=== PATIENT | male | born 1955 | race Caucasian/White ===

== ENCOUNTER 2016-07-05 05:14 | Day surgery (SDC) | payer MEDICAID ==
[2016-07-04 12:29] LABS: APTT 32.2 SECONDS (22.8-39.4); INR 0.98 (0.85-1.17); PROTIME 12.9 SECONDS (11.6-15.0)
[2016-07-04 12:30] LABS: ANION GAP 14.7 mmol/L (8-16); CALCIUM 9.2 mg/dL (8.5-10.1); CARBON DIOXIDE 24.6 mmol/L (21.0-32.0); CREATININE - SERUM 1.1 mg/dL (0.6-1.3); POTASSIUM - SERUM 4.3 mmol/L (3.5-5.1)
[2016-07-04 12:57] LABS: BASOPHILS 0.1 % (0.0-2.0); EOSINOPHILS 1.7 % (0-7); HEMATOCRIT 47.1 % (42.0-54.0); HEMOGLOBIN 15.6 g/dL (13.5-17.5); IMMATURE GRANULOCYTES 0.3 % (0-5); LYMPHOCYTES 13.4 % (15-50); MCH 29.7 pg (26.0-34.0); MCHC 33.1 g/dL (31.0-37.0); MCV 89.5 fL (80.0-100.0); MONOCYTES 8.8 % (2-11); NEUTROPHILS 75.7 % (40-80); PLATELET COUNT 286 10x3/uL (130-400); RBC 5.26 10x6/uL (4.20-6.10); RDW 13.3 % (11.5-14.5)
[~2016-07-05] VITALS: Ht 177.8 cm; Wt 87.5 kg
[~2016-07-05 05:14] MED LIST: ALOE VERA JUICE OR; HYDROCODONE-ACET5 ML PO; LORATAB PO; MILK THISTLE140 MG PO; VALIUM5 MG PO; ZESTRIL20 MG PO; ZOFRAN4 MG PO
[2016-07-05 06:13] VITALS: BP 127/91; Ht 177.8 cm; Wt 87.5 kg
--- NOTE | 2016-07-05 08:13 | NUR ---
PRAVEEN GALVEZ TO ROOM
[2016-07-05] MEDS ORDERED: HYDROCODONE-APA1 TAB PO (08:52)
--- NOTE | 2016-07-05 10:10 | NUR ---
1000-MEDICATED WITH ONE 10MG NORCO FOR PAIN. ICE PACK APPLIED TO SITE.
--- NOTE | 2016-07-05 12:08 | NUR ---
1145-PT. LEFT, ESCORTED VIA WHEELCHAIR TO PERSONAL CAR, LEFT WITH AT SIDE.
--- NOTE | 2016-07-05 13:26 | OP ---
PATIENT NAME: LUCITA HONEYCUTT MEDICAL RECORD: [id number] :51 LOCATION:D.OPS ADMISSION DATE: SURGEON: TOMMY QUIROGA MD DATE OF OPERATION: 07/05/2016 PREOPERATIVE DIAGNOSES: 1. Left inguinal hernia. 2. Hypertension. POSTOPERATIVE DIAGNOSES: 1. Left inguinal hernia. 2. Hypertension. PROCEDURE: Left inguinal hernia repair with medium PHS mesh. SURGEON: Tommy Quiroga MD REPORT OF PROCEDURE: The patient's left groin was prepped and draped in sterile fashion. An oblique incision was made above the inguinal ligament. Electrocautery was used to dissect through the subcutaneous tissue to the external oblique fascia. This fascia was incised with a 15 blade and opened to the external ring using Metzenbaum scissors. The ilioinguinal nerve was found and high ligated. The spermatic cord was elevated and the Ramer was placed around it. The patient had a small indirect hernia defect. This was freed up from the spermatic cord and dunked back down into the peritoneal cavity. The preperitoneal space of Retzius was opened up in all directions and a medium PHS mesh was inserted. This was sutured down on all 4 sides using interrupted 0 Vicryls. The wound was then irrigated out with normal saline. The external oblique fascia was then closed with running 2-0 Vicryl, Yolanda's was closed with interrupted 3-0 Vicryls and the skin was closed with running subcutaneous 5-0 Monocryl. A 10 mL of 0.25% Marcaine with epinephrine was infused into the surrounding tissues and the wound was dressed appropriately. COMPLICATIONS: None. CONDITION: Stable. ANESTHESIA: General endotracheal and local. BLOOD LOSS: Minimal. TRANSINT:[id number] Voice Confirmation ID: [id number] DOCUMENT ID: [id number] TOMMY QUIROGA MD at 1326 CC: PANCHO DUENAS MD [id number] DICTATION DATE: 07/05/16 0858 PARCEL POST DELIVERY: 07/05/16 0922 [facility] 07/05/16 [id number] [place] [address]
== END 2016-07-05 11:45 | disposition home or self-care (01) ==
LOC: D.OPS 05:14 → D.PAN 07:30 → D.OPS 08:45
PROVIDERS: Anesthesiology; Surgery
DX: K40.90 Unilateral inguinal hernia, without obstruction or gangrene, not specified as recurrent (principal); I10 Essential (primary) hypertension

== ENCOUNTER → 2017-07-09 14:47 | Outpatient (CLI) | payer MEDICAID ==
[2016-07-05 06:13] VITALS: BMI 27.7
[~2017-07-09 14:47] MED LIST changes: +HYDROCODONE-APA1 TAB PO
== END | disposition home or self-care (01) ==
LOC: D.CT 14:47
DX: C83.31 Diffuse large B-cell lymphoma, lymph nodes of head, face, and neck (principal)

== ENCOUNTER 2017-08-16 16:34 | Emergency (ER) | payer MEDICAID ==
[2016-07-05 06:13] VITALS: BMI 27.7
[2017-08-16 16:57] LABS: BASOPHILS 0.2 % (0-2); EOSINOPHILS 2.2 % (0-7); HEMOGLOBIN 15.4 g/dL (13.5-17.5); IMMATURE GRANULOCYTES 0.2 % (0-5); LYMPHOCYTES 22.2 % (15-50); MCH 29.8 pg (26.0-34.0); MCHC 34.2 g/dL (31.0-37.0); MCV 87.2 fL (80.0-100.0); MEAN PLATELET VOLUME 8.7 fL (7.4-10.4); NEUTROPHILS 66.2 % (40-80); RBC 5.16 10x6/uL (4.20-6.10); RDW 12.2 % (11.5-14.5); WBC 5.4 10x3/uL (4.8-10.8)
[2017-08-16 16:58] LABS: PLATELET COUNT 227 10x3/uL (130-400)
[2017-08-16 17:33] LABS: ALBUMIN 3.7 g/dL (3.4-5.0); ALKALINE PHOSPHATASE 56 U/L (46-116); ALT (SGPT) 35 U/L (10-68); CALC OSMOLALITY 275 mosm/kg (275-300); CALCIUM 8.7 mg/dL (8.5-10.1); CARBON DIOXIDE 25.5 mmol/L (21.0-32.0); CHLORIDE - SERUM 101 mmol/L (98-107); CREATININE - SERUM 1.1 mg/dL (0.6-1.3); GLUCOSE 91 mg/dL (74-106); POTASSIUM - SERUM 4.2 mmol/L (3.5-5.1); PROTEIN - SERUM 7.4 g/dL (6.4-8.2); SODIUM 137 mmol/L (136-145); UREA NITROGEN 17 mg/dL (7-18); eGFR NON AFRICAN AMERICAN 71 mL/min (90-120)
[2017-08-16 17:46] LABS: CHOL - HDL RATIO 2.7 ratio (2.3-4.9); CHOLESTEROL, TOTAL 175 mg/dL (0-200); CKMB 1.4 U/L (0.0-3.6); CREATINE KINASE 69 UL (21-232); HDL CHOLESTEROL 66 mg/dL (32-96); LDL CHOLESTEROL 73 mg/dL (0-100); LDL-HDL RATIO 1.1 ratio (1.5-3.5); TRIGLYCERIDE 181 mg/dL (30-200); TROPONIN-I < 0.017 ng/mL (0.000-0.060)
== END 2017-08-16 19:11 | disposition home or self-care (01) ==
LOC: D.ER 16:34
PROVIDERS: Emergency Medicine
DX: R42 Dizziness and giddiness (principal); T50.905A Adverse effect of unspecified drugs, medicaments and biological substances, initial encounter; Y92.019 Unspecified place in single-family (private) house as the place of occurrence of the external cause

== ENCOUNTER 2019-02-15 19:27 | Observation (INO) | payer MEDICARE ==
[~2019-02-15] VITALS: Ht 177.8 cm; Wt 90.9 kg
[2019-02-15] MEDS ORDERED: PEPCID AC20 MG PO (19:32)
[2019-02-15 19:51] VITALS: BP 157/108
[2019-02-15 19:58] LABS: BASOPHILS 0.4 % (0-2); EOSINOPHILS 3.9 % (0-7); HEMATOCRIT 40.8 % (42.0-54.0); HEMOGLOBIN 14.4 g/dL (13.5-17.5); IMMATURE GRANULOCYTES 0.2 % (0-5); LYMPHOCYTES 19.1 % (15-50); MCH 30.2 pg (26.0-34.0); MCHC 35.3 g/dL (31.0-37.0); MCV 85.5 fL (80.0-100.0); MEAN PLATELET VOLUME 8.2 fL (7.4-10.4); MONOCYTES 11.3 % (2-11); NEUTROPHILS 65.1 % (40-80); PLATELET COUNT 209 10x3/uL (130-400); RBC 4.77 10x6/uL (4.20-6.10); RDW 13.1 % (11.5-14.5); WBC 4.7 10x3/uL (4.8-10.8)
[2019-02-15 20:07] LABS: APTT 30.2 SECONDS (22.8-39.4); INR 0.99 (0.85-1.17); PROTIME 12.6 SECONDS (11.6-15.0)
[2019-02-15 20:13] VITALS: BP 154/99
--- NOTE | 2019-02-15 20:13 | NUR ---
PT REPORTS PAIN PRIOR TO FIRST NITRO 08/17 BP :154/99 HR 83
[2019-02-15 20:16] LABS: ALBUMIN 3.9 g/dL (3.4-5.0); ALKALINE PHOSPHATASE 59 U/L (46-116); ALT (SGPT) 26 U/L (10-68); BILIRUBIN - TOTAL 0.48 mg/dL (0.2-1.3); CALC OSMOLALITY 261 mosm/kg (275-300); CALCIUM 8.4 mg/dL (8.5-10.1); CARBON DIOXIDE 27.3 mmol/L (21.0-32.0); CHLORIDE - SERUM 96 mmol/L (98-107); CREATININE - SERUM 1.1 mg/dL (0.6-1.3); GLUCOSE 88 mg/dL (74-106); POTASSIUM - SERUM 4.3 mmol/L (3.5-5.1); PROTEIN - SERUM 7.4 g/dL (6.4-8.2); SODIUM 132 mmol/L (136-145); UREA NITROGEN 8 mg/dL (7-18); eGFR NON AFRICAN AMERICAN 71 mL/min (90-120)
[2019-02-15 20:37] VITALS: BP 150/88
[2019-02-15 20:37] LABS: CKMB 2.6 U/L (0.0-3.6); CREATINE KINASE 111 UL (21-232); MAGNESIUM - SERUM 1.9 mg/dL (1.8-2.4)
--- NOTE | 2019-02-15 20:37 | NUR ---
PT REPORTS NO IMPROVEMENT IN PAIN WITH FIRST NITRO. PRIOR TO 2ND NITRO BP 150/88 HR 80
[2019-02-15 20:38] LABS: TROPONIN-I < 0.017 ng/mL (0.000-0.060)
[2019-02-15 21:12] VITALS: BP 120/80
--- NOTE | 2019-02-15 21:16 | NUR ---
UNABLE TO ACCEPT REPORT AT THIS TIME. NURSE WILL RETURN CALL
--- NOTE | 2019-02-15 21:25 | NUR ---
CALL RETURNED. ON HOLD AT THIS TIME.
--- NOTE | 2019-02-15 21:32 | NUR ---
STILL HOLDING FOR ER TO GIVE REPORT.
--- NOTE | 2019-02-15 21:35 | NUR ---
ER STAFF UNABLE TO PROVIDE REPORT. WILL WAIT FOR THEM TO CALL BACK TO UNIT.
--- NOTE | 2019-02-15 21:46 | NUR ---
REPORT RECIEVED FROM BRAIN IN ER. PT BEING BROUGHT OVER BY WHEELCHAIR.
[2019-02-15 21:52] VITALS: BP 123/84; BMI 28.7
--- NOTE | 2019-02-15 22:55 | NUR ---
DR CASTRO ON UNIT SEEING PATIENT.
[2019-02-15 22:58] VITALS: Ht 177.8 cm; Wt 90.9 kg
--- NOTE | 2019-02-15 23:22 | NUR ---
CALL FROM MICHELLE IN [facility] WANTING CLARIFICATION ON WHEN THE STRESS TEST IS TO BE DONE. CALL TO DR CASTRO AND HE SAYS IT CAN BE DONE IN THE MORNING.
[2019-02-16 00:01] VITALS: BP 123/84
[2019-02-16 04:00] VITALS: BP 139/88
[2019-02-16 05:35] LABS: BASOPHILS 0.3 % (0-2); HEMATOCRIT 38.7 % (42.0-54.0); HEMOGLOBIN 13.5 g/dL (13.5-17.5); LYMPHOCYTES 29.3 % (15-50); MCH 29.9 pg (26.0-34.0); MCHC 34.9 g/dL (31.0-37.0); MCV 85.6 fL (80.0-100.0); MEAN PLATELET VOLUME 8.3 fL (7.4-10.4); MONOCYTES 15.5 % (2-11); NEUTROPHILS 49.9 % (40-80); PLATELET COUNT 178 10x3/uL (130-400); RBC 4.52 10x6/uL (4.20-6.10)
--- NOTE | 2019-02-16 05:38 | NUR ---
PT AWAKE AND ALERT, HAS BEEN NPO AND WITHOUT CAFFIENE SINCE MIDNIGHT FOR AM STRESS TEST. NO CHANGE FROM INITIAL SHIFT ASSESSMENT. CPOC.
[2019-02-16 05:59] LABS: WBC 3.4 10x3/uL (4.8-10.8)
--- NOTE | 2019-02-16 07:35 | NUR ---
ALERT AND ORIENTED X4. SITTING UP IN BED. AT BEDSIDE. NPO FOR STESS TEST. DENIES SOB OR PAIN. DENIES ANY NEEDS AT THIS TIME. CONTINUE PLAN OF CARE AND SAFETY PRECAUTIONS.
[2019-02-16 08:47] VITALS: BP 136/79
[2019-02-16 16:10] VITALS: BP 147/96
--- NOTE | 2019-02-16 19:00 | NUR ---
RECEIVED BEDSIDE REPORT. PATIENT IS ALERT AND ORIENTED, RESTING COMFORTABLY IN BED. RESPIRATIONS ARE EVEN AND UNLABORED. NO S/S OF DISTRESS. NO C/O PAIN. DENIES NEEDS AT THIS TIME
[2019-02-16 20:00] VITALS: BP 115/76
[2019-02-17] VITALS: BP 114/75
[2019-02-17 04:00] VITALS: BP 132/82
--- NOTE | 2019-02-17 09:24 | NUR ---
IV AND TELEMETRY DCD. DC PLANS GIVEN. UNDERSTANDING VOICED. ESCORTED TO CAR BY W/C.
--- NOTE | 2019-02-18 14:32 | CN ---
PATIENT NAME:LUCITA HONEYCUTT MEDICAL RECORD: [id number] : 51 LOCATION:D. D.2114 ADMIT DATE: 02/15/19 ACCOUNT: [id number] CONSULTING PHYSICIAN: SUE CASTRO MD REFERRING PHYSICIAN: PANCHO DUENAS MD DATE OF CONSULTATION: 02/15/2019 ADMITTING DIAGNOSES: 1. Chest pain compatible with angina. 2. Hypertension. 3. Gastroesophageal reflux disease. HISTORY OF PRESENT ILLNESS: Mr. Honeycutt has no history of ischemic heart disease, he is followed by Dr. Lino for hypertension. He developed chest discomfort over the past 48 hours. It is an anterior pressure-like sensation, worse with exertion but progressed to the point of having discomfort at rest today. His EKG is with no significant ST-T abnormalities. He is currently pain free after 2 sublingual nitro. PHYSICAL EXAMINATION: GENERAL APPEARANCE: Well nourished, well developed, appears stated age. Level of distress, comfortable. PSYCHIATRIC: Mental status, alert, normal affect. Orientation, oriented to time, place and person. EYES: Lids and conjunctiva, noninjected. No discharge, no pallor. ENT: Lips, teeth, gums, normal dentition. Oropharynx, no cyanosis, no pallor. NECK: Carotid arteries, bilateral normal upstroke, no bruits, no thrills. JUGULAR VEINS: No jugular venous pressure or distention. CERVICAL LYMPH NODES: Nontender, nonenlarged. THYROID: Not enlarged. Nontender. No nodules. LUNGS: Respiratory effort, unlabored. CHEST: Normal curvature. No thoracic deformity. No chest wall tenderness. Percussion, resonant. Auscultation, clear. No wheezes, no rales, no rhonchi. CARDIOVASCULAR: Precordial exam, nondisplaced. No heaves or pericardial thrills. Rate and rhythm, regular. Heart sounds, normal S1, normal S2. No S3, no gallop, no rub. Systolic murmur, not heard. Diastolic murmur, not heard. EXTREMITIES: No cyanosis, no edema. Peripheral pulses, full and equal in all extremities, except as noted. No bruits appreciated. ABDOMEN: Soft, nondistended. Normal aorta. No bruit. Nontender. No masses. Liver, nontender, no hepatomegaly. Spleen, nontender, no splenomegaly. MUSCULOSKELETAL: No joint tenderness. No joint swelling. No erythema. NEUROLOGICAL: Normal gait, normal strength, normal tone. SKIN: Warm and dry. OVERALL IMPRESSION: Chest pain compatible with angina, progressive to rest pain, but normal troponin, normal EKG. We will risk stratify with stress testing with Cardiolite imaging. Further care depends upon the findings of the stress test. TRANSINT:[id number] Voice Confirmation ID: [id number] DOCUMENT ID: [id number] CONSULT REPORT [id number] LUCITA HONEYCUTT, USE GALVEZ at 1432 CC: [id number] DICTATION DATE: 02/15/19 2302 POSTAL SERVICE MAIL PROCESSOR: 02/16/19 0215 [facility] 02/17/19 [id number] [place] [address]
--- NOTE | 2019-02-18 14:32 | ST ---
PATIENT:LUCITA HONEYCUTT MEDICAL RECORD: [id number] SEX: M LOCATION:D. D.211 ORDER #: ADMISSION DATE: 02/15/19 AGE OF PATIENT: 63 REFERRING PHYSICIAN: INTERPRETING PHYSICIAN: SUE CASTRO MD DATE OF SERVICE: 02/15/2019 PROCEDURE: Nuclear stress test. INDICATION: Chest pain of unknown etiology. He was exercised on a standard Mustapha protocol exercising 4 minutes achieving greater than 85% max target heart rate response with 26 mCi of sestamibi injected at peak stress, 10 mCi used previously for rest images. FINDINGS: Gated SPECT reveals preserved ejection fraction at 67% with good wall motion and thickening and brightening throughout all segments. SPECT Imaging: Cardiolite was used as myocardial fusion agent. There is homogeneous uptake throughout all segments at rest and stress with no evidence of inducible ischemia or previous infarction. OVERALL IMPRESSION: 1. This is a normal nuclear stress test with no evidence of inducible ischemia or previous infarction. 2. Gated SPECT reveals a preserved ejection fraction at 67%. In this patient with ongoing symptomatology, the current scan does not suggest the presence of hemodynamically significant coronary artery disease. Evaluate noncardiac etiology of chest pain. TRANSINT:[id number] Voice Confirmation ID: [id number] DOCUMENT ID: [id number] SUE CASTRO MD at 1432 CC: [id number] DICTATION DATE: 02/16/19 1512 SHEET METAL WORKER HELPER: 02/17/19 0419 [facility] 02/17/19 [id number] [place] [address]
--- NOTE | 2019-02-18 14:32 | EC ---
PATIENT:LUCITA HONEYCUTT DATE OF SERVICE: 02/15/19 SEX: M MEDICAL RECORD: [id number] DATE OF : 51 LOCATION:D.M2 D.211 AGE OF PATIENT: 63 ADMISSION DATE: 02/15/19 REFERRING PHYSICIAN: INTERPRETING PHYSICIAN: SUE THOMAS MD ECHOCARDIOGRAM REPORT ECHO CHARGES 4 ECHO COMPLETE Date: 02/16/19 CLINICAL DIAGNOSIS: HX: AORTIC ANEURYSM ECHOCARDIOGRAPHIC MEASUREMENTS (adult normal given) AC root (d.<3.7cm) 2.1 cm LV Septum d (<1.2 cm> 1.5 cm Valve Excursion 1.4 cm LV Septum (systole) 1.6 cm Left Atria (s.<4.0cm> 3.8 cm LVPW d(<1.2cm) 1.4 cm RV (d.<2.3cm) 3.6 cm LVPW (sytole) 1.9 cm LV diastole(<5.6CM) 4.2 cm MV E-F(>70mm/sec) cm LV systole 3.3 cm LVOT Diameter 2.1 cm MV exc.(>10mm) cm Est.ejection fraction (50-75%) % DOPPLER: LVIT cm/sec A 79 cm/sec E 41 cm/sec LA cm/sec RVSP 30.6 mmHg LVOT 77 cm/sec AOP1/2T m/s Asc. Ao 139 cm/sec RVOT 79 cm/sec RA cm/sec PA 85 cm/sec AV Gradient Peak 7.7 mmHg AV Mean 4.6 mmHg AV Area 1.9 cm MV Gradient Peak 3.2 mmHg MV Mean 1.4 mmHg MV Area cm COMMENTS: Furniture Designer: Marcie ROONEY Iron Erector: 1 Dr. Thomas TAPE# PACS Pericardial Effusion N DATE OF SERVICE: FINDINGS: 1. Left ventricular chamber size is within normal limits. Left ventricular systolic function is normal. Overall ejection fraction estimated at 55%. 2. Left atrium, right atrium, right ventricle chamber sizes are within normal limits. 3. Valvular structures have normal structure and motion. 4. Doppler interrogation reveals mild mitral regurgitation, trace tricuspid regurgitation, no other valvular insufficiency or stenosis. Pulmonary systolic ECHOCARDIOGRAM REPORT [id number] LUCITA HONEYCUTT pressure is estimated at 30 mmHg. 5. No evidence of pericardial effusion or left ventricular thrombus. TRANSINT:[id number] Voice Confirmation ID: [id number] DOCUMENT ID: [id number] SUE THOMAS MD at 1432 CC: [id number] DICTATION DATE: 02/16/19 160 CUSTOMER SUCCESS REPRESENTATIVE: 02/16/192023 DIS IN 02/17/19 [id number] [id number]
== END 2019-02-17 09:24 | disposition home or self-care (01) ==
LOC: D.ER 19:27 → OBSVTIME 20:23 → D.M2 20:23
PROVIDERS: Family Medicine; ADMIT Family Medicine; ATTEND Family Medicine
DX: R07.9 Chest pain, unspecified (principal); I10 Essential (primary) hypertension; Z87.891 Personal history of nicotine dependence; F10.21 Alcohol dependence, in remission; K21.9 Gastro-esophageal reflux disease without esophagitis

== ENCOUNTER → 2019-11-09 12:08 | Outpatient (CLI) | payer MEDICARE ==
[2019-02-15 22:58] VITALS: BMI 28.7
[~2019-11-09 12:08] MED LIST changes: +PEPCID AC20 MG PO
== END | disposition home or self-care (01) ==
LOC: D.CT 12:08
PROVIDERS: ATTEND Family Medicine
DX: R10.813 Right lower quadrant abdominal tenderness (principal); R10.11 Right upper quadrant pain